=== PATIENT | male | born 1985 | race Caucasian/White ===

== ENCOUNTER 2017-10-09 10:33 | Emergency (ER) | payer MEDICAID, OTHER ==
[~2017-10-09] VITALS: Ht 180.3 cm; Wt 79.4 kg
[2017-10-09 16:41] VITALS: BP 119/80
[2017-10-09 17:04] LABS: Urine Bacteria MOD /hpf (None Seen); Urine Blood 3+ /uL (Negative); Urine Mucus FEW (None Seen); Urine WBC 1894 /hpf (0 - 3); Urine WBC Clumps PRESENT /hpf (None Seen)
== END 2017-10-09 18:38 | disposition left against medical advice (07) ==
LOC: ER 10:33
DX: R10.9 Unspecified abdominal pain (principal); R31.9 Hematuria, unspecified; Z53.21 Procedure and treatment not carried out due to patient leaving prior to being seen by health care provider
CPT/HCPCS: 74176; 81001

== ENCOUNTER 2019-04-17 14:34 | Emergency (ER) | payer SELFPAY ==
[~2019-04-17] VITALS: Ht 177.8 cm; Wt 90.7 kg
[2019-04-17 16:15] VITALS: BP 101/61
== END 2019-04-17 16:42 | disposition left against medical advice (07) ==
LOC: ER 14:38
DX: S82.142A Displaced bicondylar fracture of left tibia, initial encounter for closed fracture (principal); F17.210 Nicotine dependence, cigarettes, uncomplicated; V87.8XXA Person injured in other specified noncollision transport accidents involving motor vehicle (traffic), initial encounter; Y93.89 Activity, other specified; Y92.89 Other specified places as the place of occurrence of the external cause; Y99.8 Other external cause status
CPT/HCPCS: 73562